=== PATIENT | female | born 1985 | race Caucasian/White ===

== ENCOUNTER 2019-03-23 15:23 | Emergency (ER) | payer OTHER, SELFPAY ==
[2019-03-23 15:32] VITALS: BP 126/95; PULSE 114; RESP 22; TEMP 38.1; O2SAT 100
--- NOTE | 2019-03-23 16:12 | ED.URI ---
HPI - URI/Sore Throat General Chief Complaint: Upper Respiratory Infection Stated Complaint: FEVER/DRAINAGE/BODY ACHES Time Seen by Provider: 03/23/19 16:12 Source: patient Mode of arrival: ambulatory Limitations: no limitations History of Present Illness HPI Narrative: A 34 y/o female, who is a nonsmoker/occasional drinker, presents to with recheck . Pt states that her was seen at today and was diagnosed with influenza type B. Pt's daughter was also diagnosed with strep throat on (3 days ago). She reports body aches and a cough, but denies a wheeze. Pt is not on any medications on a regular basis. Pt is negative for the flu and strep throat; Context: sick contacts Related Data Allergies Allergy/AdvReac Type Severity Reaction Status Date / Time No Known Allergies Allergy Verified 03/23/19 15:46 Review of Systems Review of Systems: Narrative: General/Constitutional: Reports: 102 degree F fever, body aches; Denies: weight loss Eyes: Denies: Redness,discharge Ears/Nose/Throat: Denies: Epistaxis,ear discharge Respiratory: Reports: a cough; Denies: Hemoptysis, wheeze Gastrointestinal: Denies: Vomiting, Bleeding-rectal Skin: Denies: Lumps, eruption PMFSH Surgical History Surgical History (Updated 03/23/19 @ 16:24 by Leelee Davis) Hx of cholecystectomy Hx of tonsillectomy Social History Social History (Updated 03/23/19 @ 16:24 by Leelee Davis) Smoking status: Never smoker Alcohol intake: current Alcohol use details: occasional Comments No PCP on file. At time of signature, agree with nursing past medical, surgical, social and family history. There is no relevant family history pertinent to the presenting complaint Exam Narrative: Exam Narrative: General Appearance: Well appearing, Conjunctiva clear Ears: External ear normal, Auditory canal normal, TM normal Nose: Normal nose, Rhinorrhea, Mucousal erythema Mouth/Throat: Normal appearing, Normal lips, MM moist, Uvula midline, Pharyngeal erythema Respiratory: Airway patent, No respiratory distress, BS equal, Clear to auscultation (no wheeze) Skin: Warm, Dry, Normal color Neurological: A&O x3, , Normal affect Course Vital Signs Vital signs: Vital Signs Temperature 100.6 F H 03/23/19 15:32 Pulse Rate 114 H 03/23/19 15:32 Respiratory Rate 22 H 03/23/19 15:32 Blood Pressure 126/95 H 03/23/19 15:32 Pulse Oximetry 100 03/23/19 15:32 Temperature 100.6 F H 03/23/19 15:32 Pulse Rate 114 H 03/23/19 15:32 Respiratory Rate 22 H 03/23/19 15:32 Blood Pressure 126/95 H 03/23/19 15:32 Pulse Oximetry 100 03/23/19 15:32 MDM - URI/Sore Throat Lab Data Labs: Influenza A Screen Negative Reference Range: Negative Influenza B Screen Negative Reference Range: Negative Strep Screen Presumptive Negative *(Reference Range: Negative)* Discharge Plan Discharge Clinical Impression: Influenza-like illness Patient Disposition: Home, Self-Care Condition: Stable Instructions: Influenza (ED) Prescriptions: New benzonatate [Tessalon Perles] 100 mg capsule 100 mg PO TID Qty: 20 RF: 1 oseltamivir [Tamiflu] 75 mg capsule 75 mg PO Q12H 5 Days Qty: 10 RF: 0 Follow-up/Referrals: UNKNOWN,DOCTOR [Primary Care Provider] - Stand Alone Forms: Work/School Release IP Discharge Date/Time: 03/23/19 16:29
== END 2019-03-23 16:29 | disposition home or self-care (01) ==
PROVIDERS: Emergency Provider Emergency Medicine
DX: J11.1 Influenza due to unidentified influenza virus with other respiratory manifestations (principal)
CPT/HCPCS: 87081; 87804; 87880; 99213; G0463